=== PATIENT | male | born 1995 | race Caucasian/White ===

== ENCOUNTER 2017-05-24 12:13 | Day surgery (SDC) | payer OTHER ==
[~2017-05-24] VITALS: Ht 180.3 cm; Wt 56.0 kg
[2017-05-24 12:55] VITALS: Ht 180.3 cm; Wt 56.0 kg
[2017-05-24 13:20] VITALS: BP 121/75; PULSE 59; RESP 18
[2017-05-24] MEDS ORDERED: LIDOCAINE 4% SOLUTION 50 ML BTL ONE (14:15)
[2017-05-24] MEDS ORDERED: MIDAZOLAM 1 MG/ML 2 ML INJ ONE ×2 (14:47→14:48)
[2017-05-24] MEDS ORDERED: FENTAnyl 50 MCG/ML VIAL ONE (14:48)
--- NOTE | 2017-05-24 14:49 | OPR ---
Date/Time of Note Date/Time of Note DATE: 05/24/17 TIME: 14:45 Operative Report Preoperative Diagnosis ABDOMINAL PAIN,SPLENOMEGALY Postoperative Diagnosis MILD ESOPHAGITIS GASTRITIS, NO VARICES Operation/Procedure Performed EGD BIOPSY Surgeon: ISAI NASH MD Anesthesia: other (MODERATE SEDATION) Estimated Blood Loss: none Specimens GASTRIC BIOPSY Grafts/Implants NONE Complications: None ISAI NASH MD May 24, 2017 14:49
--- NOTE | 2017-05-25 01:41 | GILP ---
DATE OF PROCEDURE: 05/24/2017 PREOP DIAGNOSIS: Splenomegaly, abdominal pain, etiology of splenomegaly not clear. Rule out varices. PROCEDURE DONE: EGD, biopsy POSTOP DIAGNOSIS: Distal esophagitis with erythema and mild gastritis. No varices noted. DESCRIPTION OF PROCEDURE: The patient was put in left lateral decubitus after obtaining informed consent. Posterior pharynx anesthetized with 4 percent xylocaine, I gave 4 mg IV Versed and 100 mcg of fentanyl. Advanced Olympus video upper endoscope into the esophagus, stomach and duodenum. The distal esophagus, mild erythema noted. There was no evidence of esophageal varices. As I entered the stomach the fundus was examined by retroflexion also. No gastric varices noted. No gastropathy but mild gastritis noted in the body and antrum so random biopsy was done. The pylorus and duodenal bulb, 1st and 2nd part normal. The scope was withdrawn. Patient had no complications. At present, he has no evidence of cirrhosis induced varices but the splenomegaly may be idiopathic. I would like to further investigate this with a hematological consultation. He will follow up as outpatient. Dictated By: Adan Villafuerte MD /heavenly/ /Document#: [id number] ; Dr. Raman York
== END 2017-05-24 15:00 | disposition home or self-care (01) ==
LOC: GIL 12:13
PROVIDERS: ATTEND Internal Medicine
DX: K20.8 Other esophagitis (principal); K29.60 Other gastritis without bleeding
CPT/HCPCS: 43239; 88305; 88312; J2250; J3010; Z7610

== ENCOUNTER 2017-09-18 19:51 | Emergency (ER) | payer OTHER ==
[~2017-09-18] VITALS: Ht 172.7 cm; Wt 55.5 kg
[2017-09-18 19:54] VITALS: Ht 172.7 cm; Wt 55.5 kg
[2017-09-18] MEDS ORDERED: SOD CHLORIDE 0.9% 1,000 ML IV STA (22:12)
[2017-09-18] MEDS ORDERED: FAMOTIDINE 20 MG INJ IV ONE (22:30)
[2017-09-18 22:59] LABS: BASOPHIL # 0.1 10^3/ul (0.0-0.1); BASOPHILS % 0.6 % (0.0-2.0); EOSINOPHILS # 0.1 10^3/ul (0.0-0.5); EOSINOPHILS % 1.3 % (0.0-7.0); HEMATOCRIT 46.3 % (42.0-52.0); HEMOGLOBIN 15.8 g/dl (14.0-18.0); LYMPHOCYTES # 3.6 10^3/ul (0.8-2.9); LYMPHOCYTES % 33.6 % (15.0-51.0); MEAN CORPUSCULAR HEMOGLOBIN 31.4 pg (29.0-33.0); MEAN CORPUSCULAR HGB CONC 34.1 g/dl (32.0-37.0); MEAN PLATELET VOLUME 9.8 fl (7.4-10.4); MONOCYTE # 0.7 10^3/ul (0.3-0.9); NEUTROPHIL # 6.1 10^3/ul (1.6-7.5); NEUTROPHILS % 57.3 % (39.0-77.0); PLATELET COUNT 321 10^3/UL (140-415); RED BLOOD COUNT 5.03 10^6/ul (4.70-6.10); RED CELL DISTRIBUTION WIDTH 12.6 % (11.5-14.5); WHITE BLOOD COUNT 10.6 10^3/ul (4.8-10.8)
[2017-09-18 23:11] LABS: ALBUMIN 4.8 g/dl (3.3-4.9); ALBUMIN/GLOBULIN RATIO 1.33; BILIRUBIN,INDIRECT 1.2 mg/dl (0-1.1); BILIRUBIN,TOTAL 1.2 mg/dl (0.2-1.3); CREATININE 0.95 mg/dl (0.61-1.24); POTASSIUM 4.4 mmol/L (3.5-5.1); TOTAL PROTEIN 8.4 g/dl (6.1-8.1)
--- NOTE | 2017-09-18 23:31 | RADRPT ---
PROCEDURE: CT ABDOMEN/PELVIS WITHOUT CONTRAST CLINICAL INDICATION: 21-year-old male with abdominal pain. TECHNIQUE: The study was performed utilizing a GE [employer] VCT 64-slice CT scanner. Direct axia l sections were obtained through the abdomen and pelvis without the use of intravenous contrast mate rial. Sagittal and coronal reformations were obtained. One or more of the following dose reduction t echniques were utilized: automated exposure control, adjustment of the mA and/or kV according to pat ient's size and/or the use of iterative reconstruction technique. DICOM images are available. The im ages were reviewed on a PACS workstation. CTD/vol = 4.3 mGy; Total Exam DLP = 239.8 mGy-cm. COMPARISON: None. FINDINGS: The lung bases are unremarkable. There is no evidence for significant pleural effusion. The liver has a normal size and contour without focal areas of abnormal density. No intrahepatic nor extrahepa tic biliary ductal dilatation is seen. The gallbladder demonstrates no wall thickening nor perichole cystic fluid. No biliary stones are evident. The pancreas is without areas of abnormal attenuation. The spleen is identified and has a normal size without abnormal density. The adrenal glands are unr emarkable. The kidneys are without abnormal density. No hydroureteronephrosis nor nephroureterolithi asis is evident. The urinary bladder contains urine. The stomach is mildly distended with particular material. There is mild retained stool identified throughout the colon without gross bowel obstruct ion. The appendix is visualized and is without abnormal thickening or surrounding inflammatory react ion. There is no significant free fluid. Diffuse shotty mesenteric lymph nodes are noted. The aortoiliac vessels are without aneurysmal dilatation. The osseous structures are intact. IMPRESSION: 1. Retained colonic stool. 2. No CT evidence for appendicitis. 3. Shotty mesenteric lymph nodes. .Jian Zaragoza MD, Date Time Electronically viewed and signed by .Jian Zaragoza MD, MD on 09/18/2017 23:31 .[facility]ish/
[2017-09-19 00:24] LABS: URINE BLOOD (Dip) POC Negative (NEGATIVE)
[2017-09-19] MEDS ORDERED: HYDR-906 PO (00:28)
[2017-09-19 00:50] VITALS: BP 101/59; PULSE 67; RESP 17
--- NOTE | 2017-09-19 01:24 | ERD ---
ER Documentation Chief Complaint Chief Complaint chronic abd pain; sent by PMD/GI MD; stopped meds 3 weeks ago per pt HPI 21-year-old male complaining of abdominal pain. Patient states that he has been seen by multiple GI specialist. He has been diagnosed with H. pylori but has been unable to complete antibiotic courses as he has allergic reactions. Patient was told to come to the ER by his PMD and GI specialist for possible admission and IV antibiotics. Patient is told that he has chronic abdominal pain that is sharp in nature. He states the pain comes and goes and does not know what causes the pain to develop. He denies any changes in urination or bowel movement. Denies any vomiting. Denies fever ROS All systems reviewed and are negative except as per history of present illness. Medications Home Meds Active Scripts Hydrocodone/Acetaminophen ([place] 5-325 Tablet) 1 Each Tablet, 1 TAB PO Q6H Y for PAIN, #7 TAB Prov:ELMA WATTS PA-C 09/19/17 Reported Medications [None] No Conflict Check 05/24/17 Allergies Allergies: Coded Allergies: No Known Allergy (Unverified , 05/24/17) PMhx/Soc Medical and Surgical Hx: pt denies Medical Hx, pt denies Surgical Hx History of Surgery: No Anesthesia Reaction: No Hx Neurological Disorder: No Hx Respiratory Disorders: No Hx Cardiac Disorders: No Hx Psychiatric Problems: No Hx Miscellaneous Medical Probl: No Hx Alcohol Use: No Hx Substance Use: No Hx Tobacco Use: Yes Smoking Status: Current every day smoker Physical Exam Vitals Vital Signs Date Time Temp Pulse Resp B/P Pulse Ox O2 Delivery O2 Flow Rate FiO2 09/19/17 00:50 67 17 101/59 99 Room Air 09/18/17 19:54 97.8 98 20 139/81 99 Physical Exam GENERAL: The patient is well-appearing, well-nourished, in no acute distress HEENT: Atraumatic. Conjunctivae are pink. Pupils equal, round, and reactive to light. There is no scleral icterus. Tympanic membranes clear bilaterally. Oropharynx clear. No nystagmus or photophobia. NECK: C-spine is soft and supple. There is no meningismus. There is no cervical lymphadenopathy. CHEST: Clear to auscultation bilaterally. There are no rales, wheezes or rhonchi. HEART: Regular rate and rhythm. No murmurs, clicks, rubs or gallops. No S3 or S4. ABDOMEN: Active bowel sounds. Mild tenderness palpation diffusely scattered over the abdomen. No rebound tenderness. No rigidity. BACK: No midline or flank tenderness. Result Diagram: 09/18/17222909/18/172229 Results 24 hrs Laboratory Tests Test 09/18/17 22:30 09/19/17 00:24 White Blood Count 10.610^3/ul Red Blood Count 5.0310^6/ul Hemoglobin 15.8g/dl Hematocrit 46.3% Mean Corpuscular Volume 92.0fl Mean Corpuscular Hemoglobin 31.4pg Mean Corpuscular Hemoglobin Concent 34.1g/dl Red Cell Distribution Width 12.6% Platelet Count 34315^3/UL Mean Platelet Volume 9.8fl Neutrophils % 57.3% Lymphocytes % 33.6% Monocytes % 7.0% Eosinophils % 1.3% Basophils % 0.6% Nucleated Red Blood Cells % 0.0/100WBC Neutrophils # 6.110^3/ul Lymphocytes # 3.610^3/ul Monocytes # 0.710^3/ul Eosinophils # 0.110^3/ul Basophils # 0.110^3/ul Nucleated Red Blood Cells # 0.010^3/ul Sodium Level 141mmol/L Potassium Level 4.4mmol/L Chloride Level 99mmol/L Carbon Dioxide Level 28mmol/L Anion Gap 18 Blood Urea Nitrogen 14mg/dl Creatinine 0.95mg/dl Glucose Level 81mg/dl Calcium Level 10.0mg/dl Total Bilirubin 1.2mg/dl Direct Bilirubin 0.00mg/dl Indirect Bilirubin 1.2mg/dl Aspartate Amino Transf (AST/SGOT) 100IU/L Alanine Aminotransferase (ALT/SGPT) 90IU/L Alkaline Phosphatase 71IU/L Total Protein 8.4g/dl Albumin 4.8g/dl Globulin 3.60g/dl Albumin/Globulin Ratio 1.33 Lipase 152U/L Bedside Urine pH (LAB) 7.0 Bedside Urine Protein (LAB) Negative Bedside Urine Glucose (UA) Negative Bedside Urine Ketones (LAB) Negative Bedside Urine Blood Negative Bedside Urine Nitrite (LAB) Negative Bedside Urine Leukocyte Esterase (L Negative Current Medications Medications (Trade) Dose Ordered Sig/Ingrid Route PRN Reason Start Time Stop Time Status Last Admin Dose Admin Sodium Chloride (NS) 1,000 ml @ 1,000 mls/hr Q1H STAT IV 09/18/17 22:12 09/18/17 23:11 DC 09/18/17 22:36 Famotidine (Pepcid Iv) 20 mg ONCE ONCE IV 09/18/17 22:30 09/18/17 22:31 DC 09/18/17 22:36 Procedures/MDM DIAGNOSTIC IMAGING REPORT Patient: CLEMENTE WATERS : 1995 Age: 21 Sex: M MR #: [id number] DOS: 09/18/17 2217 Ordering MD: ETHAN WATTS PA-C Location: [facility] Room/Bed: PROCEDURE: CT ABDOMEN/PELVIS WITHOUT CONTRAST CLINICAL INDICATION: 21-year-old male with abdominal pain. TECHNIQUE: The study was performed utilizing a GE [employer] VCT 64-slice CT scanner. Direct axial sections were obtained through the abdomen and pelvis without the use of intravenous contrast material. Sagittal and coronal reformations were obtained. One or more of the following dose reduction techniques were utilized: automated exposure control, adjustment of the mA and/ or kV according to patient's size and/or the use of iterative reconstruction technique. DICOM images are available. The images were reviewed on a PACS workstation. CTD/vol = 4.3 mGy; Total Exam DLP = 239.8 mGy-cm. COMPARISON: None. FINDINGS: The lung bases are unremarkable. There is no evidence for significant pleural effusion. The liver has a normal size and contour without focal areas of abnormal density. No intrahepatic nor extrahepatic biliary ductal dilatation is seen. The gallbladder demonstrates no wall thickening nor pericholecystic fluid. No biliary stones are evident. The pancreas is without areas of abnormal attenuation. The spleen is identified and has a normal size without abnormal density. The adrenal glands are unremarkable. The kidneys are without abnormal density. No hydroureteronephrosis nor nephroureterolithiasis is evident. The urinary bladder contains urine. The stomach is mildly distended with particular material. There is mild retained stool identified throughout the colon without gross bowel obstruction. The appendix is visualized and is without abnormal thickening or surrounding inflammatory reaction. There is no significant free fluid. Diffuse shotty mesenteric lymph nodes are noted. The aortoiliac vessels are without aneurysmal dilatation. The osseous structures are intact. IMPRESSION: 1. Retained colonic stool. 2. No CT evidence for appendicitis. 3. Shotty mesenteric lymph nodes. ER Course: 1L NS given in ED. IV pepcid given in ED Dr. Villafuerte consulted on the need for admission for IV antibiotics. Physician stated that he did not feel there is need for admission at this time. He stated that patient should receive CT scan in the ER and given normal results patient should be discharged and follow-up in outpatient clinic. MDM: 21-year-old male complaining of abdominal pain. Patient's CT and blood work are within normal limits. I have low suspicion for hepatitis, mesenteric ischemia, Perforated peptic ulcer disease, bowel obstruction, appendicitis, choledocholithiasis, cholecystitis, cholangitis, pancreatitis. Patient's pain is chronic and he is recommended to follow-up with GI specialist as the specialist recommended over the phone. There does not appear to be indication for admission at this time. Dr. Villafurete did not want to admit for IV antibiotics for H. pylori. He recommended patient to follow-up outpatient. Patient is discharged with strict ER precautions and given medication for pain. Patient is told if symptoms change or worsen to return immediately to the ER. All questions answered at discharge per Departure Diagnosis: Primary Impression: Abdominal pain Condition: Stable Patient Instructions: Abdominal Pain Referrals: DARREN HERNANDEZ (PCP) Additional Instructions: FOLLOW UP WITH YOUR PRIMARY CARE PHYSICIAN TOMORROW.Return to this facility if you are not improving as expected. ELMA WATTS PA-C Sep 19, 2017 01:23
== END 2017-09-19 00:50 | disposition home or self-care (01) ==
LOC: FTE 19:51
DX: R10.84 Generalized abdominal pain (principal); F17.210 Nicotine dependence, cigarettes, uncomplicated
CPT/HCPCS: 36415; 74176; 80053; 81003; 83690; 85025; 96374; J7030; Z7502; Z7610

== ENCOUNTER 2018-10-30 18:12 | Inpatient (IN) | payer OTHER ==
[~2018-10-30] VITALS: Ht 180.3 cm; Wt 85.0 kg
[~2018-10-30 18:12] MED LIST: HYDR-4011 PO
[2018-10-30 21:53] VITALS: PULSE 100
[2018-10-30 22:05] VITALS: BMI 58.0
[2018-10-30 22:20] VITALS: BP 123/74; PULSE 96; RESP 19
[2018-10-30] MEDS ORDERED: ACETAMINOPHEN 650 MG SUPP PR PRN (23:00)
[2018-10-30] MEDS ORDERED: HYDROmorphONE 0.5 MG/0.5 ML SYG IV PRN (23:00)
[2018-10-30] MEDS ORDERED: PROMETHAZINE 12.5 MG SUPP PR PRN (23:00)
[2018-10-30] MEDS ORDERED: ONDANSETRON 4 MG INJ IV PRN (23:00)
[2018-10-30] MEDS ORDERED: ALBUTEROL/IPRATROPIUM (NEB) 3 ML AMP HHN PRN (23:30)
[2018-10-30] MEDS: SOD CHLORIDE 0.9% 1,000 ML IV SCH (23:35)
[2018-10-30] MEDS: PIPER-TAZO 3.375 GM IV (PMX) 100 ML IVPB SCH (23:36)
[2018-10-30 23:38] VITALS: BP 135/85; PULSE 96; RESP 18
[2018-10-31] VITALS (11 sets, daily range): BP systolic 113–133; BP diastolic 66–77; PULSE 85–106; RESP 18–20; Ht 180.3 cm; Wt 85.0 kg
[2018-10-31] MEDS: ALBUTEROL/IPRATROPIUM (NEB) 3 ML AMP HHN SCH ×5 (01:00→21:19)
[2018-10-31] MEDS: PIPER-TAZO 3.375 GM IV (PMX) 100 ML IVPB SCH ×3 (04:52→21:14)
[2018-10-31] MEDS: MULTIVITAMINS/MINERALS TAB PO SCH (08:37)
[2018-10-31] MEDS ORDERED: ENOXAPARIN 40 MG/0.4 ML SYG SC SCH (09:00)
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
[2018-10-31] MEDS ORDERED: morphine SULFATE/PF (2 MG/2 ML) SYG IV PRN (14:30)
[2018-10-31] MEDS: PANTOPRAZOLE (EC) 40 MG TAB PO SCH (14:33)
[2018-10-31] MEDS: SOD FERRIC GLUC COMPLX 125 MG in SOD CHLORIDE 0.9% 100 ML IVPB SCH (19:01)
[2018-10-31] MEDS: HYDROCODONE/APAP (5/325) TAB PO PRN (22:11)
[2018-10-31] MEDS: SOD CHLORIDE 0.9% 1,000 ML IV SCH (22:12)
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
[2018-11-01] MEDS: PIPER-TAZO 3.375 GM IV (PMX) 100 ML IVPB SCH ×4 (01:55→17:50)
[2018-11-01 02:30] VITALS: BP 126/72; PULSE 103; RESP 20
[2018-11-01] MEDS: ACETAMINOPHEN 325 MG TAB PO PRN ×2 (03:48→14:42)
[2018-11-01] MEDS: PANTOPRAZOLE (EC) 40 MG TAB PO SCH (06:54)
[2018-11-01 08:26] VITALS: BP 119/69; PULSE 96; RESP 18
[2018-11-01] MEDS: ALBUTEROL/IPRATROPIUM (NEB) 3 ML AMP HHN SCH ×4 (09:18→20:37)
[2018-11-01] MEDS: MULTIVITAMINS/MINERALS TAB PO SCH (09:46)
[2018-11-01] MEDS: HYDROCODONE/APAP (5/325) TAB PO PRN ×3 (10:01→21:57)
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
[2018-11-01 14:00] VITALS: BP 122/66; PULSE 98; RESP 20
[2018-11-01] MEDS: CHOLECALCIFEROL 2,000 UNIT CAP PO SCH (14:42)
[2018-11-01] MEDS: SOD FERRIC GLUC COMPLX 125 MG in SOD CHLORIDE 0.9% 100 ML IVPB SCH (14:42)
[2018-11-01 19:40] VITALS: BP 127/80; PULSE 96; RESP 20
[2018-11-02] MEDS: PIPER-TAZO 3.375 GM IV (PMX) 100 ML IVPB SCH ×5 (00:20→23:50)
[2018-11-02 02:30] VITALS: BP 128/70; PULSE 96; RESP 20
[2018-11-02] MEDS: PANTOPRAZOLE (EC) 40 MG TAB PO SCH (06:40)
[2018-11-02 07:39] VITALS: BP 121/58; PULSE 91; RESP 18
[2018-11-02] MEDS: ALBUTEROL/IPRATROPIUM (NEB) 3 ML AMP HHN SCH (08:09)
[2018-11-02] MEDS: CHOLECALCIFEROL 2,000 UNIT CAP PO SCH (09:28)
[2018-11-02] MEDS: MULTIVITAMINS/MINERALS TAB PO SCH (09:30)
[2018-11-02] MEDS ORDERED: ALBUTEROL/IPRATROPIUM (NEB) 3 ML AMP HHN PRN (13:30)
[2018-11-02] MEDS: SOD FERRIC GLUC COMPLX 125 MG in SOD CHLORIDE 0.9% 100 ML IVPB SCH (13:47)
[2018-11-02] MEDS: ACETAMINOPHEN 325 MG TAB PO PRN ×2 (13:50→20:32)
[2018-11-02 14:45] VITALS: BP 114/68; PULSE 76; RESP 18
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
[2018-11-02 20:30] VITALS: BP 113/66; PULSE 95; RESP 18
[2018-11-03 01:48] VITALS: BP 119/69; PULSE 86; RESP 18
[2018-11-03] MEDS: PANTOPRAZOLE (EC) 40 MG TAB PO SCH (06:15)
[2018-11-03] MEDS: ACETAMINOPHEN 325 MG TAB PO PRN ×3 (06:15→21:23)
[2018-11-03] MEDS: PIPER-TAZO 3.375 GM IV (PMX) 100 ML IVPB SCH (06:16)
[2018-11-03 07:30] VITALS: BP 116/66; PULSE 90; RESP 18
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
[2018-11-03] MEDS: MULTIVITAMINS/MINERALS TAB PO SCH (11:55)
[2018-11-03] MEDS: CHOLECALCIFEROL 2,000 UNIT CAP PO SCH (11:55)
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
[2018-11-03 15:43] VITALS: BP 126/68; PULSE 96; RESP 18
[2018-11-03 19:58] VITALS: BP 113/62; PULSE 94; RESP 18
[2018-11-04] VITALS (19 sets, daily range): BP systolic 97–134; BP diastolic 57–96; PULSE 76–113; RESP 12–24
[2018-11-04] MEDS: ACETAMINOPHEN 325 MG TAB PO PRN ×3 (01:34→22:49)
[2018-11-04] MEDS: MULTIVITAMINS/MINERALS TAB PO SCH (09:18)
[2018-11-04] MEDS: PANTOPRAZOLE (EC) 40 MG TAB PO SCH (09:18)
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
[2018-11-04] MEDS: CHOLECALCIFEROL 2,000 UNIT CAP PO SCH (11:15)
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
[2018-11-05] VITALS (11 sets, daily range): BP systolic 112–131; BP diastolic 59–68; PULSE 71–94; RESP 16–20
[2018-11-05] MEDS: PANTOPRAZOLE (EC) 40 MG TAB PO SCH (05:13)
[2018-11-05] MEDS: ACETAMINOPHEN 325 MG TAB PO PRN ×4 (05:16→21:41)
[2018-11-05] MEDS: MULTIVITAMINS/MINERALS TAB PO SCH (09:00)
[2018-11-05] MEDS: CHOLECALCIFEROL 2,000 UNIT CAP PO SCH (09:10)
[2018-11-05] MEDS: ASPIRIN 81 MG TAB PO SCH (09:11)
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
--- NOTE | 2018-11-05 15:27 | RADRPT ---
Echocardiogram Report Patient Name: CLEMENTE WATERS Gender: Male Date: 1995 Study Date: 04-Nov-2018 Tobacco Blender: Rebecca Kent [facility] Location: 112 Ref. Physician: BALDOMERO LAROSE Quality: Adequate Procedures: Transthoracic echocardiogram with complete 2D, M-Mode, and doppler examination. Indications: stroke, PFO?. 2D/M Mode Doppler Measurement Value Normal Ranges Measurement Value Normal Ranges LVIDd 2D 4.0 3.5 - 5.6 cm AV Peak Cricket 1.6 m/sec LVIDs 2D 2.5 2.1 - 4.1 cm AV Peak PG 11.0 mmHg FS 2D 35.6 % LVOT Peak Cricket 1.3 m/sec LVPWd 2D 1.0 0.6 - 1.1 cm LVOT Peak PG 7.0 mmHg IVSd 2D 1.0 0.6 - 1.1 cm MV E Peak Cricket 1.0 m/sec IVS/LVPW 2D 1.0 MV A Peak Cricket 0.8 m/sec AoR Diam 2D 2.3 2.0 - 3.7 cm MV E/A 1.4 LA/Ao 2D 1 0 - 1 MV Decel Time 204 msec EDV 2D 62.1 cm3 MV E/A 1.4 ESV 2D 16.6 cm3 LA Dimen 2D 2.3 2.3 - 4.0 cm Findings Left Ventricle: Normal left ventricular systolic function. Normal left ventricular cavity size. Normal left ventricular wall thickness. Ejection fraction is visually estimated at 60 %. Tissue Doppler/Mitral Doppler indices are within normal limits. Right Ventricle: Normal right ventricular size. Normal right ventricular systolic function. Left Atrium: The left atrium is normal in size. Right Atrium: The right atrium is normal in size. Atrial Septum: Normal atrial septum. Mitral Valve: Normal appearance and function of the mitral valve with trace physiologic regurgitation. Aortic Valve: Normal appearance of the aortic valve. No significant aortic stenosis or insufficiency. Tricuspid Valve: Normal appearance of the tricuspid valve. Unable to obtain RVSP due to minimal presence of tricuspid regurgitation. Pulmonic Valve: Normal pulmonic valve appearance. Pericardium: Normal pericardium with no significant pericardial effusion. Aorta: Normal aortic root. IVC: Normal size and normal respiratory collapse consistent with normal right atrial pressure. Conclusions 1.Normal left ventricular systolic function. Normal left ventricular cavity size. Normal left ventricular wall thickness. Ejection fraction is visually estimated at 60 %. Tissue Doppler/Mitral Doppler indices are within normal limits. 2.Normal appearance and function of the mitral valve with trace physiologic regurgitation. 3.Normal appearance of the tricuspid valve. Unable to obtain RVSP due to minimal presence of tricuspid regurgitation. Electronically Signed By: Xavier Bowden 05-Nov-2018 15:26:50 -0800 Patient Name: CLEMENTE WATERS Study Date: 04-Nov-2018 [id number]
[2018-11-06] VITALS (7 sets, daily range): BP systolic 116–133; BP diastolic 62–70; PULSE 66–94; RESP 18–19
[2018-11-06] MEDS: PANTOPRAZOLE (EC) 40 MG TAB PO SCH (06:00)
[2018-11-06] MEDS: ACETAMINOPHEN 325 MG TAB PO PRN (07:06)
[2018-11-06] MEDS: MULTIVITAMINS/MINERALS TAB PO SCH (09:38)
[2018-11-06] MEDS: CHOLECALCIFEROL 2,000 UNIT CAP PO SCH (09:38)
[2018-11-06] MEDS: ASPIRIN 81 MG TAB PO SCH (09:38)
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
[2018-11-06] MEDS ORDERED: ASPI-831 PO (12:35)
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
--- NOTE | 2018-11-06 21:52 | RADRPT ---
Vent Rate: 81 bpm RR Interval: 0 msec NM Interval: 136 msec QRS Duration: 86 msec QT Interval: 372 msec QTC Interval: 432 msec P-R-T [place]: 62 - 34 - 24 degrees Normal sinus rhythm Normal ECG Electronically Signed By: Osmany Callejas [id number]
== END 2018-11-06 14:53 | disposition home health service (06) | DRG 963 ==
LOC: TEL 21:30 → MS1 10-31 16:30 → ICU 11-04 07:00 → TEL 11-04 20:35
PROVIDERS: ADMIT Internal Medicine Nephrology; ATTEND Internal Medicine Nephrology
DX: T79.1XXA Fat embolism (traumatic), initial encounter (principal); S72.351A Displaced comminuted fracture of shaft of right femur, initial encounter for closed fracture; J69.0 Pneumonitis due to inhalation of food and vomit; S06.6X9A Traumatic subarachnoid hemorrhage with loss of consciousness of unspecified duration, initial encounter; F07.81 Postconcussional syndrome; D64.9 Anemia, unspecified
CPT/HCPCS: 70450; 70551; 73510; 73550; 80048; 80053; 81001; 81003; 81240; 83090; 83735; 83890; 84100; 85025; 85240; 85300; 85302; 85305; 85378; 85651; 86146; 86147; 86592; 87081; 93005; 93306; 94640; 94664; 97116; 97163; 97164; 97530; J1170; J1650; J2274; J2543; J2916; J7030